=== PATIENT | male | born 1980 | race Caucasian/White ===

== ENCOUNTER 2018-07-05 14:25 | Outpatient (CLI) | payer OTHER | END 2018-07-05 14:28 | disposition home or self-care (01) | LOC: RAD 14:25 | DX: R06.02 Shortness of breath (principal) ==

== ENCOUNTER 2018-10-02 09:06 | Outpatient (CLI) | payer OTHER | END 2018-10-02 09:17 | disposition home or self-care (01) | LOC: NUCLEAR 09:06 | DX: I82.443 Acute embolism and thrombosis of tibial vein, bilateral (principal) ==

== ENCOUNTER 2019-03-21 13:20 | Outpatient (CLI) | payer OTHER | END 2019-03-21 14:00 | disposition home or self-care (01) | LOC: RAD 13:20 | DX: I11.9 Hypertensive heart disease without heart failure (principal) ==

== ENCOUNTER 2021-08-02 12:24 | Outpatient (CLI) | payer OTHER | END 2021-08-02 12:30 | disposition home or self-care (01) | LOC: RAD 12:24 | PROVIDERS: ATTEND Specialist | DX: R06.02 Shortness of breath (principal) ==